=== PATIENT | female | born 1990 | race Caucasian/White ===

== ENCOUNTER 2017-10-27 09:24 | Emergency (ER) | payer SELFPAY ==
[~2017-10-27] VITALS: Ht 162.6 cm; Wt 59.4 kg
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
[2017-10-27] MEDS ORDERED: KETOROLAC TROMETHAMINE INJ 30 MG/ML VIAL ONE (10:19)
[2017-10-27 10:23] VITALS: BP 112/78
--- NOTE | 2017-10-27 10:24 | NUR ---
Patient discharged to home in stable condition. Written and verbal after care instructions given. Patient verbalizes understanding of instruction.
[2017-10-27] MEDS ORDERED: KETOROLAC TROMETHAMINE INJ 30 MG/ML VIAL IM ONE (10:30)
== END 2017-10-27 10:24 | disposition home or self-care (01) ==
LOC: ER 09:30
DX: S20.212A Contusion of left front wall of thorax, initial encounter (principal); S80.02XA Contusion of left knee, initial encounter; V43.52XA Car driver injured in collision with other type car in traffic accident, initial encounter; Y93.89 Activity, other specified; Y92.413 State road as the place of occurrence of the external cause; Y99.8 Other external cause status
CPT/HCPCS: 99283; A4606; Z7610; J1885